=== PATIENT | female | born 1950 | race Caucasian/White ===

== ENCOUNTER 2021-05-25 11:46 | Outpatient (REF) | payer MEDICARE, SELFPAY ==
--- NOTE | ~2021-05-25 | MM_ITS ---
EXAMINATION: MM SCREENING DIGITAL BREAST TOMOSYNTHESIS, BILATERAL CLINICAL INFORMATION: Screening. Asymptomatic. The lifetime risk of breast cancer based on the Tyrer-Cuzick Model is 3%. COMPARISON: Mammography: 12/26/2018, 12/10/2017, 04/25/2016 TECHNIQUE: Digital breast tomosynthesis is performed in both the craniocaudal and mediolateral oblique views along with computer-aided detection (CAD). Synthesized 2D images are generated from the tomosynthesis. FINDINGS: The breasts are heterogeneously dense, which may obscure small masses (ACR BI-RADS breast composition Category c). There are no significant masses, abnormal calcifications, or other abnormalities. There is fine fibronodular parenchymal pattern similar to prior studies. Parenchymal pattern is similar to prior exams. The axilla and skin contours are unremarkable. MM/MM tomosynthesis screening BI IMPRESSION: No mammographic evidence of malignancy. ASSESSMENT: BI-RADS 1: Negative RECOMMENDATION: Routine annual mammography screening. This patient's information was entered into a reminder system with a target due date for their next mammogram.
== END 2021-05-25 11:47 | disposition home or self-care (01) ==
LOC: HO.MAMMO 11:46
PROVIDERS: Visit Provider Internal Medicine
DX: Z12.31 Encounter for screening mammogram for malignant neoplasm of breast (principal)
CPT/HCPCS: 77063; 77067

== ENCOUNTER → 2022-09-06 13:45 | Outpatient (BNV) | payer OTHER, SELFPAY | PROVIDERS: PCP Internal Medicine; Visit Provider Radiology Diagnostic Radiology | DX: Z12.31 Encounter for screening mammogram for malignant neoplasm of breast (principal) | CPT/HCPCS: 77063; 77067 ==

== ENCOUNTER 2022-09-06 13:47 | Outpatient (REF) | payer OTHER, SELFPAY ==
--- NOTE | ~2022-09-06 | MM_ITS ---
EXAMINATION: MM SCREENING DIGITAL BREAST TOMOSYNTHESIS, BILATERAL CLINICAL INFORMATION: Screening. Asymptomatic. The lifetime risk of breast cancer based on the Tyrer-Cuzick Model is 2.5%. COMPARISON: Mammography: This study is compared with prior exams dating back to 2017. TECHNIQUE: Digital breast tomosynthesis is performed in both the craniocaudal and mediolateral oblique views along with computer-aided detection (CAD). Synthesized 2D images are generated from the tomosynthesis. FINDINGS: The breasts are heterogeneously dense, which may obscure small masses (ACR BI-RADS breast composition Category c). There are no significant masses, abnormal calcifications, or other abnormalities. MM/MM tomosynthesis screening BI IMPRESSION: No mammographic evidence of malignancy. ASSESSMENT: BI-RADS BI-RADS 1 - Negative RECOMMENDATION: Routine annual mammography screening. 1 year F/U This examination should not preclude the clinical evaluation of a suspicious palpable abnormality. This patient's information was entered into a reminder system with a target due date for their next mammogram.
== END 2022-09-06 13:48 | disposition home or self-care (01) ==
LOC: HO.MAMMO 13:47
PROVIDERS: PCP Internal Medicine; Visit Provider Internal Medicine
DX: Z12.31 Encounter for screening mammogram for malignant neoplasm of breast (principal)
CPT/HCPCS: 77063; 77067

== ENCOUNTER 2023-09-13 09:35 | Outpatient (REF) | payer OTHER, SELFPAY ==
[2023-09-13 11:24] LABS: MANUAL DIFF FLAG NO
[2023-09-13 11:28] LABS: Basophils Absolute Auto 0.1 X10*3/uL (0.0-0.2); Basophils Percent Auto 0.7 % (0-2); Eosinophils Absolute Auto 0.2 X10*3/uL (0.0-0.4); Eosinophils Percent Auto 2.4 % (0-4); Hematocrit 37.3 % (37.0-47.0); Hemoglobin 12.3 g/dl (12.0-16.0); Imm Gran Abs Auto 0.02 X10*3/uL (0.00-0.03); Imm Gran Pct Auto 0.3 % (0.0-0.4); Lymphocytes Absolute Auto 2.3 X10*3/uL (1.2-4.9); Lymphocytes Percent Auto 29.7 % (20-40); Mean Corpuscular Hemoglobin 30.6 pg (27.0-33.0); Mean Corpuscular Volume 92.8 fL (80.0-98.0); Mean Platelet Volume 10.6 fL (9.4-12.3); Monocytes Absolute Auto 0.4 X10*3/uL (0.1-1.2); Monocytes Percent Auto 5.1 % (2-11); Neutrophils Absolute Auto 4.7 x10*3/uL (2.0-8.3); Neutrophils Percent Auto 61.8 % (45-73); Platelet Count 226 X10*3/uL (160-400); Red Blood Count 4.02 X10*6/uL (4.20-5.50); Red Cell Distribution Width 12.6 % (11.0-16.0); White Blood Count 7.6 X10*3/uL (4.8-10.8)
[2023-09-13 11:35] LABS: Estimated Average Glucose 131 mg/dL; Hemoglobin A1c % 6.2 % (<6.0)
[2023-09-13 11:46] LABS: Alanine Aminotransferase 8 U/L (0-31); Alkaline Phosphatase 83 U/L (39-117); Anion Gap 16 (12-20); Aspartate Amino Transferase 20 U/L (5-31); Bilirubin Total 0.3 mg/dL (0.0-1.0); Blood Urea Nitrogen 18 mg/dL (9-16); Calcium 9.7 mg/dL (8.4-10.2); Carbon Dioxide 23 mmol/L (22-29); Chloride 104 mmol/L (96-108); Cholesterol 197 mg/dL (<200); Estimated Glomerular Filt Rate 56; Glucose Random 100 mg/dL (60-115); HDL Cholesterol 57 mg/dL (>40); LDL Cholesterol Calculated 125 mg/dL (<100); Potassium 3.9 mmol/L (3.3-5.1); Sodium 139 mmol/L (135-145); Total Protein 9.4 g/dL (6.5-8.0); Triglycerides 78 mg/dL (<150)
[2023-09-13 11:52] LABS: Reflex LDLD? No
[2023-09-13 11:58] LABS: HIV AB/AG Nonreactive (Nonreactive); HIV Num 1 0.05 S/CO (0.00-0.99)
[2023-09-13 12:05] LABS: Vitamin D 25-OH Total 7.8 ng/mL (>30)
[2023-09-17 11:24] LABS: HCV Log PCR <1.18 NOT DETECTED Log IU/mL (NOT DETECTED); HepC Viral Load <15 NOT DETECTED IU/mL (NOT DETECTED)
== END 2023-09-13 09:36 | disposition home or self-care (01) ==
LOC: HO.HHCL 09:35
PROVIDERS: Visit Provider Internal Medicine
DX: Z00.00 Encounter for general adult medical examination without abnormal findings (principal); Z13.1 Encounter for screening for diabetes mellitus
CPT/HCPCS: 36415; 80053; 80061; 82306; 83036; 85025; 87389; 87522

== ENCOUNTER 2023-10-04 09:13 | Outpatient (REF) | payer OTHER, SELFPAY ==
--- NOTE | ~2023-10-04 | MM_ITS ---
EXAMINATION: MM SCREENING DIGITAL BREAST TOMOSYNTHESIS, BILATERAL CLINICAL INFORMATION: Screening. Asymptomatic. COMPARISON: Mammography: This study is compared with prior exams dating back to 2019. TECHNIQUE: Digital breast tomosynthesis is performed in both the craniocaudal and mediolateral oblique views along with computer-aided detection (CAD). Synthesized 2D images are generated from the tomosynthesis. FINDINGS: The breasts are heterogeneously dense, which may obscure small masses (ACR BI-RADS breast composition Category c). There is a focal asymmetry of the lower inner quadrant of the left breast at middle depth. Additional mammographic and targeted sonographic imaging of this finding is advised. In the right breast, there are no significant masses, abnormal calcifications, or other abnormalities. MM/MM tomosynthesis screening BI IMPRESSION: Focal asymmetry of the left breast warrants additional mammographic and targeted sonographic imaging. No mammographic signs of malignancy right breast. ASSESSMENT: BI-RADS BI-RADS 0 - Incomplete: Needs additional Imaging. RECOMMENDATION: 1. Additional views of the left breast. 2. Targeted ultrasound if warranted after review of the additional views. 3. Radiology department staff will contact the patient for additional imaging. Additional Imaging required This examination should not preclude the clinical evaluation of a suspicious palpable abnormality. This patient's information was entered into a reminder system with a target due date for their next mammogram. Electronically signed by: Lisbeth Nuno MD 11/01/2023 11:30 AM EDT
--- NOTE | ~2023-10-04 | MM_ITS ---
EXAMINATION: BONE DENSITOMETRY CLINICAL INDICATION: Encounter for screening for osteoporosis. COMPARISON: Baseline BD dated 11/25/2009. TECHNIQUE: Using a [employer] DXA System (software version: 13.1) manufactured by [employer], dual-energy x-ray absorptiometry was performed of the lumbar spine and left hip. The images are of good technical quality. Summary results are attached. FINDINGS: LEFT FEMUR, NECK: Current: BMD 0.863 g/cm2, Z-score 0.6, T-score -1.3, osteopenia. Baseline: BMD 1.002 g/cm2. LEFT FEMUR, TOTAL: Current: BMD 0.929 g/cm2, Z-score 1.0, T-score -0.6, normal, 13.9% decrease from baseline (<5% change is not significant). Baseline: BMD 1.079 g/cm2. AP SPINE L1-L4: Current: BMD 0.965 g/cm2, Z-score 0.0, T-score -1.8, osteopenia, 17.8% decrease from baseline (<5% change is not significant). Baseline: BMD 1.174 g/cm2. IDENTIFIED RISK FACTORS: Early menopause, secondary osteoporosis. HISTORY OF FRACTURE: None listed. MEDICATIONS: None listed. MM/XR DEXA axial skeleton IMPRESSION: 1. DIAGNOSIS: Osteopenia based on the lowest T-score value of -1.8 in the lumbar spine applying World Health Organization criteria. 2. 10-YEAR FRACTURE RISK PREDICTION, FRAX: Major osteoporotic fracture (clinical spine, forearm, hip or shoulder) 5.5%. Hip fracture 0.8%. 3. Treatment Recommendations: NOF guidelines recommend consideration for treatment in postmenopausal women and men age 50 and older presenting with the following: -A hip or vertebral (clinical or morphometric) fracture. -T-score less than or equal to -2.5 at the femoral neck or spine after appropriate evaluation to exclude secondary causes. -Low bone mass at the hip or spine and a 10-year fracture probability by FRAX of greater than or equal to 3% for hip fracture or greater than or equal to 20% for major osteoporotic fracture based on the [place] adapted WHO algorithm. 4. Other Recommendations: All treatment decisions require clinical judgment and consideration of individual patient factors, including patient preferences, comorbidities, previous drug use, risk factors not captured in the FRAX model (e.g. frailty, falls, vitamin D deficiency, increased bone turnover, interval significant decline in bone density) and possible under or overestimation of fracture risk by FRAX. Additional medical evaluation for secondary cause of low bone mineral density may be appropriate. FUTURE SCAN RECOMMENDATION: People with diagnosed cases of osteoporosis or at high risk for fracture should have regular bone mineral density tests. For patients eligible for Medicare, routine testing is allowed once every 2 years. The testing frequency can be increased to one year for patients who have rapidly progressing disease, those who are receiving or discontinuing medical therapy to restore bone mass, or have additional risk factors.
== END 2023-10-04 09:14 | disposition home or self-care (01) ==
LOC: HO.MAMMO 09:13
PROVIDERS: PCP Internal Medicine; Visit Provider Internal Medicine
DX: Z12.31 Encounter for screening mammogram for malignant neoplasm of breast (principal); Z13.820 Encounter for screening for osteoporosis; Z78.0 Asymptomatic menopausal state
CPT/HCPCS: 77063; 77067; 77080

== ENCOUNTER → 2023-10-04 09:45 | Outpatient (BNV) | payer OTHER, SELFPAY | PROVIDERS: PCP Internal Medicine; Visit Provider Radiology Diagnostic Radiology | DX: Z12.31 Encounter for screening mammogram for malignant neoplasm of breast (principal) | CPT/HCPCS: 77063; 77067 ==

== ENCOUNTER 2024-03-13 10:28 | Outpatient (AMB) | payer OTHER, SELFPAY ==
--- NOTE | 2024-03-13 10:36 | MHC.OFFVIS ---
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 States she had a vein procedure over [address] [place]. She states her left leg cramps. 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 Complaints include pain over varicosities, swelling of lower extremities, cramping, fatigue, and heaviness of the lower extremities. It has been affecting there daily activities including walking. It is noted more so in left leg. Patient unclear if this was an ablation but procedure done on right leg in [facility] Patient denies any history of DVT/ PE. Patient denies any history of phlebitis. Trial of compression includes - [id number] They now present for vascular evaluation regarding their varicose veins. Review of Systems Const Reports as per HPI ENT Reports no additional complaints Card Denies chest pain, Denies chest pain at rest and Denies chest pain with activity Resp Denies chest congestion and Denies cough GI Reports no additional complaints Musc Details: pain over varicosities, aching of lower extremities, swelling, cramping, heaviness and tiredness, itching Denies abnormal gait Skin/Breast Reports pruritus and Denies wounds Neuro Reports no additional complaints and Denies abnormal gait Psych Denies no additional complaints Physical Exam Const General: cooperative, healthy appearing and comfortable Orientation/consciousness: oriented to person, oriented to place and oriented to time Neck Carotids: no bruits Chest Chest palpation & inspection: normal inspection of the chest and normal palpation of entire chest wall Resp Effort & Inspection: normal respiratory effort and able to speak in complete sentences Cardio Rate: regular rate Heart sounds: S1 normal heart sound present and S2 normal heart sound present Peripheral pulses: Peripheral pulses 2+ throughout GI Inspection: Yes normal to inspection Skin Other: +2 edema, large rope-like varicosities greater than 4 mm CEAP Classification C4 - skin color changes Ep - Etiology Primary As - superficial veins P - reflux General skin exam: dry skin Neuro General: oriented to person, oriented to place and oriented to time Extrem Right lower extremity: full ROM, normal capillary refill and edema Left lower extremity: full ROM, normal capillary refill and edema Psych Mental Status: mental status grossly normal Assessment & Plan Assessment & Plan (1) Varicose veins of left lower extremity with inflammation: Code(s): I83.12 - Varicose veins of left lower extremity with inflammation Category: Medical Plan: In short, the patient has evidence of venous insufficiency. I have discussed the pathophysiology with the patient. In addition I have provided informational material regarding venous disease to the patient. We have discussed conservative measures including compression, elevation, and exercise. I have also provided a handout regarding appropriate use of compression stockings and where to purchase good compression stockings as well. I have taken the liberty of ordering venous insufficiency testing with the patient. They will follow up with me after testing. The patient had an opportunity to ask questions regarding the treatment plan. All questions were answered. Imaging studies, laboratory studies and physical exam results were discussed and reviewed in detail. No major barriers to understanding were identified. The patient expressed understanding and agreement with the above treatment plan. The patient is aware they should contact our office by phone for worsening of the current condition or the appearance of new symptoms. Thank you for allowing me to participate in the vascular care of this patient. If you have any questions or concerns regarding the treatment for the above condition please do not hesitate to contact me. The office telephone contact is [phone]. This note is constructed using voice recognition software. While every effort has been made to ensure accuracy, wire rope sling maker errors may have been included. Thank you for allowing me to participate in the care of your patient. Yours sincerely, Andrey Graff MD, FACS, R.P.V.I. Orders: Orders US venous duplex LE BI 1 Week I83.12 - Varicose veins of left lower extremity with inflammation Coding Level of Care Code New Pt Level 4 (86214) Diagnoses Varicose veins of left lower extremity with inflammation I83.12
== END 2024-03-13 11:10 | disposition home or self-care (01) ==
PROVIDERS: PCP Internal Medicine; Visit Provider Surgery Vascular Surgery
DX: I83.12 Varicose veins of left lower extremity with inflammation (principal)
CPT/HCPCS: 99204

== ENCOUNTER → 2024-03-13 10:28 | Outpatient (BNVA) | payer OTHER, SELFPAY | PROVIDERS: PCP Internal Medicine; Visit Provider Surgery Vascular Surgery | DX: I83.12 Varicose veins of left lower extremity with inflammation (principal); I83.812 Varicose veins of left lower extremity with pain | CPT/HCPCS: 99202 ==

== ENCOUNTER 2024-06-12 12:54 | Outpatient (REF) | payer OTHER, SELFPAY ==
--- NOTE | ~2024-06-12 | US_ITS ---
EXAMINATION: MM DIAGNOSTIC DIGITAL BREAST TOMOSYNTHESIS, LEFT Limited left breast ultrasound. CLINICAL INFORMATION: Call back from screening for focal asymmetry in the lower inner left breast. COMPARISON: Mammography: [facility] on PACS. TECHNIQUE: Digital breast tomosynthesis is performed in both the craniocaudal and mediolateral oblique views along with computer-aided detection (CAD). Synthesized 2D images are generated from the tomosynthesis. FINDINGS: The breasts are heterogeneously dense, which may obscure small masses (ACR BI-RADS breast composition Category c). Focal asymmetry in the lower inner breast partially effaces on additional imaging projections. No suspicious calcifications or other abnormal findings. Targeted color Doppler ultrasound scanning in the lower inner breast from 7-11 o'clock demonstrates normal fibronodular breast tissue. There is no sonographic abnormality. US/US breast LT limited mamm only IMPRESSION: Focal asymmetry in the lower inner breast partially effaces without sonographic correlate. Recommend 4-6 month follow-up for further evaluation of stability when the patient will be due for bilateral mammography. ASSESSMENT: BI-RADS BI-RADS 3 - Probably benign finding(s) - 6 month follow-up suggested RECOMMENDATION: 6 Month F/U Results were provided to the patient at time of visit by the technologist. This patient's information was entered into a reminder system with a target due date for their next mammogram. Electronically signed by: Luanne Gray DO 06/12/2024 02:33 PM EDT
--- OUTSIDE RECORDS SUMMARY | 2024-06-12 15:47 | XMS_ITS | Clinical Summary ---
Author Organization [facility] Address [address] [place] [address] Care Team Providers Care Technical Lead Name Role Phone Unavailable Primary Care Provider Unavailabl e Source Comments PLEASE NOTE, if this patient is a minor, it may be UNLAWFUL to discuss sensitive information that is contained in these records (such as FAMILY PLANNING, MENTAL HEALTH or SUBSTANCE ABUSE) with the minor patient's parent or other person without the patient's specific authorization.[facility] Immunizations Immunization Administration Dates Next Due Moderna COVID-19 Vaccine, re d cap blue label, 12+ Primary Series 07/07/2020,06/09/2020 Social History Tobacco Use Types Packs/Day Years Used Date Smoking Tobacco: Never Assessed Social Connections Answer Date Recorded Social Connections and Isolation 0 07/27/2023 Financial Resource Strain Answer Date R ecorded Financial Resource Strain 0 2023 Stress Answer Date Recorded Stress 0 07/27/2023 Physical Activity Answer Date Recorded Physical Activity 0 07/27/2023 Food Insecurity Answer Date Recorded Food 0 07/27/2023 Transportation Needs Answer Date Record ed Transportation 0 07/27/2023 Housing Stability Answer Date Recorded Housing 0 07/27/2023 Safety and Environment Answer Date Jose rded Safety 0 07/27/2023 Utilities Answer Date Recorded Utilities 0 07/27/2023 Employment Answer Date Recorded Employment 0 07/27/2023 Comments Unknown Sex and Gender Information Value Date Recorded Sex Assigned at Not on file Legal Sex Female 1:15 PM PDT Gender Identity Not on file Sexual Orientation Not on file Plan of Treatment Health Maintenance Due Date Last Done Comments Hepatitis C Screening 1950 Lipid Screening 1950 Tobacco Screening 1950 Hypertension Screening (#1) 05/09/1969 Medicare Annual Wellness Visit 05/09/1969 Breast Cancer Screening (Mammogram) 1991 CT Colonography 05/09/1996 Colonoscopy 05/09/1996 Colorectal Cancer Screening 05/09/1996 FIT/gFOBT 05/09/1996 Fecal DNA 05/09/1996 Flexible Sigmoidoscopy 05/09/1996 Imm-Pneumococcal 65+ (2 of 2 - PCV) 05/29/2006 05/29/2005 Imm-Zoster, Recombinant (2 of 3) 03/17/2015 01/21/20 15 Bone Density Screening 05/09/2016 Falls Prevention 05/09/2016 [id number] ( season) 2023 021, 06/09/2020 Imm-Influenza (#1) 2023 01/14/2019, 1 , 04/18/2016, Additional history exists Alcohol and Drug Screen 02/27/2024 Depression Annual Screen 02/27/2024 Imm-DTaP/Tdap/Td (2 - Td or Tdap) 09/13/2025 016, 08/07/2005 Insurance [facility] Member Subscriber Plan / Payer (Ef fective 2020-Present) Name:Liz Luther Relation to Subscriber:Self Name:Liz Luther Payer ID:[id number] Type:Indemnity Address: [facility] [address] [id number]
== END 2024-06-12 12:55 | disposition home or self-care (01) ==
LOC: HO.MAMMO 12:54
PROVIDERS: PCP Internal Medicine; Visit Provider Internal Medicine
DX: N64.89 Other specified disorders of breast (principal)
CPT/HCPCS: 76642; 77061; 77065

== ENCOUNTER → 2024-06-12 13:00 | Outpatient (BNV) | payer OTHER, SELFPAY | PROVIDERS: PCP Internal Medicine; Visit Provider Internal Medicine | DX: R92.8 Other abnormal and inconclusive findings on diagnostic imaging of breast (principal) | CPT/HCPCS: 76642; 77065; G0279 ==

== ENCOUNTER 2024-11-27 11:18 | Outpatient (REF) | payer OTHER, SELFPAY ==
--- NOTE | ~2024-11-27 | MM_ITS ---
EXAMINATION: MM DIAGNOSTIC DIGITAL BREAST TOMOSYNTHESIS, BILATERAL CLINICAL INFORMATION: 6 month follow-up for left breast focal asymmetry lower inner breast without prior sonographic correlate. COMPARISON: Mammography: Comparison is made with relevant prior exams. TECHNIQUE: Digital breast mammography with tomosynthesis is performed in both the craniocaudal and mediolateral oblique views along with computer-aided detection (CAD). FINDINGS: The breasts are heterogeneously dense, which may obscure small masses. Left: Focal asymmetry in the lower inner left breast middle depth without prior sonographic correlate. Because compared with priors. No suspicious calcifications or other abnormal findings. Right: There are no significant masses, abnormal calcifications, or other abnormalities. Results are provided to the patient at time of visit by the technologist. MM/MM tomosynthesis diagnostic BI IMPRESSION: Left: Focal asymmetry lower inner breast less conspicuous compared with priors and without prior sonographic correlate. Recommend six-month follow-up to demonstrate 1 year stability. Right: Negative. ASSESSMENT: BI-RADS Category 3: Probably benign RECOMMENDATION: 6 Month F/U This patient's information was entered into a reminder system with a target due date for their next mammogram. Electronically signed by: Luanne Gray DO 11/27/2024 12:12 PM EDT
--- OUTSIDE RECORDS SUMMARY | 2024-11-27 13:13 | XMS_ITS | Patient Health Record ---
Demographics Address [address] [place] [address] Preferred Language Unknown Marital Status unmarried Shinto Affiliation Unknown Race Unknown Ethnic Group Unknown Author Organization [facility] Address [address] [place] [address] Care Team Providers Care Industrial Equipment Wirer Name Role Phone Mart Moraes Jr [phone] Reason For Referral No Information Plan Of Treatment No Information
--- OUTSIDE RECORDS SUMMARY | 2024-11-27 13:13 | XMS_ITS | Clinical Summary ---
Author Organization [employer] Address [address] [facility] 7[address] [place] [address] Care Team Providers Care Moving Consultant Name Role Phone Liz Guadalupe MD Primary Care Provide r Allergies No known active allergies Medications Blood Pressure Monitoring (Blood Pressure Cuff) miscIndications: Elevated blood pressure reading 1 each Once daily. 1 each 09/10/19 24 Active metFORMIN (Glucophage) 500 MG tabletIndication s:Prediabetes Take 1 tablet (500 mg) by mouth with breakfast and with evening meal. 60 tablet 11 10/09/19 24 Active cholecalciferol (Vitamin D-3) 25 MCG (1000 UT) tabletIndication s:Vitamin D deficiency Take 1 tablet (25 mcg) by mouth Once per day. 60 tablet 3 04/22/19 25 Active levothyroxine (Synthroid, Levoxyl) 25 MCG tabletIndication s:Hypothyroidism , unspecified type TAKE 1 TABLET BY MOUTH EVERY DAY 90 tablet 3 09/16/19 25 Active tolterodine (Detrol) 2 MG tabletIndication s:Mixed stress and urge urinary incontinence Take 1 tablet (2 mg) by mouth 2 times daily. 60 tablet 11 09/16/19 25 026 Active ergocalciferol (Vitamin D2) 1.25 MG (94907 UT) capsuleIndicatio ns:Vitamin D deficiency TAKE 1 CAPSULE BY MOUTH ONCE A WEEK 4 capsule 5 11/14/19 25 Active ergocalciferol (Vitamin D2) 1.25 MG (84105 UT) capsuleIndicatio ns:Vitamin D deficiency Take 1 capsule (1.25 mg) by mouth 1 (one) time per week. 4 capsule 5 10/09/19 24 025 Discontinued Active Problems Problem Noted Date Diagnosed Date Diminished vision 09/15/2024 Depression with anxiety 09/15/2024 Assessment & Plan (09/15/2024 4:07 PM EDT): Counseling done BHN referral done Hearing decreased 09/15/2024 Cognitive impairment 05/01/2024 Acquired hypothyroidism 04/22/2024 Assessment & Plan (04/22/2024 5:11 PM EST): TSH will be checked Continue with levothyroxine 25 mcg daily Prediabetes 10/09/2023 Assessment & Plan (09/15/2024 4:06 PM EDT): Today extensive discussion was done about life style modifications I advise healthy diet (low calorie) and cardiovascular exercise Assessment & Plan (04/22/2024 5:11 PM EST): Extensive counseling about healthy diet and exercise done today Assessment & Plan (10/09/2023 2:57 PM EDT): Today extensive discussion was done about life style modifications I advise healthy diet (low calorie) and cardiovascular exercise Osteopenia 10/09/2023 Assessment & Plan (10/09/2023 2:57 PM EDT): Vitamin D higher dose prescribed today Vitamin D deficiency 10/09/2023 Asymptomatic menopausal state 09/10/2023 Encounter for preventive care 09/10/2023 Assessment & Plan (09/10/2023 5:32 PM EDT): See HPI Unstable gait 09/10/2023 Assessment & Plan (04/22/2024 5:12 PM EST): tripod cane prescribed today Assessment & Plan (09/10/2023 5:33 PM EDT): Cane will be prescribed today Colon cancer screening 09/10/2023 Elevated blood pressure reading 09/10/2023 Impacted cerumen 05/03/2022 Grief 05/03/2022 Tension-type headache 05/03/2022 Bilateral hearing loss 09/14/2015 Eczema 09/14/2015 Gastroesophageal reflux disease 09/14/2015 Mood disorder 09/14/2015 Osteoarthritis of multiple joints 09/14/2015 Postoperative hypothyroidism 09/14/2015 Urinary incontinence 09/14/2015 Assessment & Plan (09/15/2024 4:07 PM EDT): Information for urology referral provided today Assessment & Plan (04/22/2024 5:11 PM EST): I will refer patient to neurology for further assessment and management Varicose veins of lower extremity 09/14/2015 Encounters Date Type Department Care Team Description 11/27/2024 Orders Only [facility] MEDICINE [address] [place] [phone] Liz Guadalupe MD 11/13/[address] [address] Liz Guadalupe MD Vitamin D deficiency 09/15/2024 1:30 PM EDT Office Visit [address] [address] Liz Guadalupe MD Grief (Primary Dx); Cognitive impairment; Hypothyroidism, unspecified type; Mixed stress and urge urinary incontinence; Prediabetes; Diminished vision; Primary osteoarthritis involving multiple joints; Depression with anxiety; Colon cancer screening; Decreased hearing, unspecified laterality 09/15/2024 Travel 09/12/[address] [address] Liz Guadalupe MD Chartprep from Last 3 Months Immunizations Immunization Administration Dates Next Due Influenza injectable quadriv alent IIV4 with preservative 11/30/2017,12/15/2014 Influenza injectable quadrivalent preservative f ree 04/18/2016,01/07/2014 Influenza, High Dose Seasonal, Preservative Free 01/14/2019 Influenza, IIV3, injectable 01/10/2011 Influenza, Split (incl. purified surface antigen ) 12/25/2011 Moderna Covid-19 Vaccine 12+ 06/09/2020 Pneumococcal Polysaccharide PPSV23 05/29/2005 TD (adult), 2 Lf tetanus tox oid, preservative free, adsorbed 08/07/2005 Tdap 09/14/2015 Zoster, live 01/20/2015 Social History Tobacco Use Types Packs/Day Years Used Date Smoking Tobacco: Never Passive Smoke Exposure: Never Smokeless Tobacco: Never Tobacco Cessation:Counseling Given: Not Answered Alcohol Use Standard Drinks/Week Comments Never 0 (1 standard drink = 0.6 oz pur e alcohol) Depression Answer Date Recorded Patient Health Questionnaire-9 Score 0 09/15/2024 Patient Health Questionnaire-9 Score 0 09/15/2024 Last PHQ-9: Questionnaire Data Not on file 0 09/15/2024 Housing Stability Answer Date Recorded What is your housing situation today? I have omid camacho 09/15/[address] you li ve. Do you have problems with any of the following? None of the above 09/15/2024 Food Insecurity Answer Date Recorded Within the past 12 months, y ou worried that your food would run out before you got money to buy more: Never True 09/15/2024 Within the past 12 months,th e food you bought just didn't last and you didn't have enough money to get more: Never True Transportation Answer Date Recorded In the past 12 months, has l ack of transportation kept you from medical appts, meetings, work or from getting things needed for daily living? No 09/15/2024 Utilities Answer Date Recorded In the past 12 months, has t he electric, gas, oil or water company threatened to shut off services in your home? No 09/15/2024 Depression Answer Date Recorded Patient Health Questionnaire-2 Score 0 09/15/2024 Internet Access Answer Date Recorded Internet Access Q1 No 09/15/2024 Internet Access Q2 I do not want or need it 08/27 Comments No Sex and Gender Information Value Date Recorded Sex Assigned at Female 12/26/2021 10:15 AM EDT Legal Sex Female 10:15 AM EDT Gender Identity Female 12/26/2021 10:15 AM EDT Sexual Orientation Choose not to disclose 2021 10:15 AM EDT Last Filed Vital Signs Vital Sign Reading Time Taken Comments Blood Pressure 139/78 09/15/2024 1:33 PM EDT Pulse 87 09/15/2024 1:33 PM EDT Temperature 37 C (98.6 F) 09/15/2024 1:33 PM EDT Respiratory Rate 16 09/15/2024 1:33 PM EDT Oxygen Saturation 99% 09/15/2024 1:33 PM EDT Inhaled Oxygen Concentration - - Weight 63.5 kg (140 lb) 09/15/2024 1:33 PM EDT Height 143.5 cm (4' 8.5 ) 09/15/2024 1:33 PM EDT Body Mass Index 30.83 09/15/2024 1:33 PM EDT Plan of Treatment Upcoming Encounters Date Type Department Care Team (Late st Contact Info) Description 01/05/2025 9:00 AM EST Office Visit [facility] OPTOMETRY [address] [place], [place] [id number] Luz Faust, OD [address] [place] [address] Health Maintenance Due Date Last Done Comments CT Colonography 1950 Colonoscopy 1950 Colorectal Cancer Screening 1950 FIT DNA/Cologuard 1950 FIT 1950 FOBT 1950 Sigmoidoscopy 1950 Pneumococcal Vaccine: 50+ Years (2 of 2 - PCV) 05/29/2006 05/29/2005 Zoster Vaccines (2 of 3) 03/17/2015 01/20/2015 COVID-19 Vaccine (3 - season) 2024 07/07/2020, 06/09/2020 Influenza Vaccine (#1) 2024 9, 11/30/2017, 04/18/2016, Additional history exists Diagnostic Breast Imaging 12/12/20242024, 06/12/2024, 09/06/2022 Diabetes: Hemoglobin A1C 04/22/2025 04/22/2024, 08/26 DTaP/Tdap/Td Vaccines (2 - Td or Tdap) 09/13/2025 09/14/2015, 08/07/2005 Alcohol/Substance Use Screening 09/15/2025 09/15/2024 Depression Screening 09/15/2025 09/15/2024, 09/16/19 SDOH Screening 09/15/2025 09/15/2024 Tobacco Screening 09/15/2025 09/15/2024 RSV Patients and Patients Aged 60 years or older (1 - 1-dose 75+ series) 05/09/2026 Hepatitis C Screening Completed 09/13/2023 HIB Vaccines Aged Out No longer eligi ble based on patient's age to complete this topic HPV Vaccines Aged Out No longer eligi ble based on patient's age to complete this topic Hepatitis A Vaccines Aged Out No long er eligible based on patient's age to complete this topic Hepatitis B Vaccines Aged Out No long er eligible based on patient's age to complete this topic IPV Vaccines Aged Out No longer eligi ble based on patient's age to complete this topic Meningococcal B Vaccine Aged Out No l onger eligible based on patient's age to complete this topic Meningococcal Vaccine Aged Out No merle staci eligible based on patient's age to complete this topic RSV under 20 months Aged Out No longe r eligible based on patient's age to complete this topic Rotavirus Vaccines Aged Out No longer eligible based on patient's age to complete this topic Procedures Procedure Name Priority Date/Time Associated Diagnosis Comments BI MAMMOGRAM DIAGNOSTIC TOMOSYNTHESIS BILATERAL Routine 11/27/2024 11:30 AM EDT POCT GLYCATED HEMOGLOBIN, TOTAL Routine 04/22/2024 3:09 PM EST Prediabetes HEPATITIS C VIRAL RNA, QUANTITATIVE, REAL-TIME PCR Routine 09/13/2023 9:40 AM EDT Encounter for preventive care from Last 3 Months or Most Recently Relevant to Health Maintenance Results * BI Mammogram Diagnostic Tomosynthesis Bilateral (11/27/2024 11:30 AM EDT) Anatomical Region Laterality Modality Breast Bilateral Mammography 11/27/2024 11:3 0 AM EDT Narrative 11/27/2024 12:15 PM EDT [facility] [address] [place] [address] Mammography Report Signed Patient: Liz Luther V MR#: [id number] : 1950 Acct:[id number] Age/Sex: 74 / F ADM Date: 11/27/24 Loc: HO.MAMMO Attending Dr: Liz Rojas MD Ordering Physician: Liz Guadalupe MD Results: 3Probably Benign Date of Service: 11/27/24 Follow Up: 6 Month F/U Procedure(s): MM tomosynthesis diagnostic BI Accession Number(s): [id number] cc: Liz Guadalupe MD Reason For Exam: LT BR 6MO F/U FOR DENSITY/YEARLY EXAMINATION: MM DIAGNOSTIC DIGITAL BREAST TOMOSYNTHESIS, BILATERAL CLINICAL INFORMATION: 6 month follow-up for left breast focal asymmetry lower inner breast without prior sonographic correlate. COMPARISON: Mammography: Comparison is made with relevant prior exams. TECHNIQUE: Digital breast mammography with tomosynthesis is performed in both the craniocaudal and mediolateral oblique views along with computer-aided detection (CAD). FINDINGS: The breasts are heterogeneously dense, which may obscure small masses. Left: Focal asymmetry in the lower inner left breast middle depth without prior sonographic correlate. Because compared with priors. No suspicious calcifications or other abnormal findings. Right: There are no significant masses, abnormal calcifications, or other abnormalities. Results are provided to the patient at time of visit by the technologist. MM/MM tomosynthesis diagnostic BI IMPRESSION: Left: Focal asymmetry lower inner breast less conspicuous compared with priors and without prior sonographic correlate. Recommend six-month follow-up to demonstrate 1 year stability. Right: Negative. ASSESSMENT: BI-RADS Category 3: Probably benign RECOMMENDATION: 6 Month F/U This patient's information was entered into a reminder system with a target due date for their next mammogram. Electronically signed by: Luanne Gray DO 11/27/2024 12:12 PM EDT Dictated By: Luanne Gray DO Signed By: <Electronically signed by Luanne Gray DO in OV> 11/27/24 1212 DD/ 1130 TD/TT: 11/27/24 1155 Sample Coordinator: Procedure Note Donotuseinterpreter, Image - 11/27/2024 [facility] [address] [place], [place] [address] Mammography Report Signed Patient: Liz Luther VMR#: [id number] : 2Acct:[id number] Age/Sex: 74 / FADM Date: 11/27/24 Loc: HO.MAMMO Attending Dr: Liz Rojas MD Ordering Physician: Liz Guadalupe MDResults: 3Probably Benign Date of Service: 11/27/24Follow Up: 6 Month F/U Procedure(s): MM tomosynthesis diagnostic BI Accession Number(s): [id number] cc: Liz Guadalupe MD Reason For Exam: LT BR 6MO F/U FOR DENSITY/YEARLY EXAMINATION: MM DIAGNOSTIC DIGITAL BREAST TOMOSYNTHESIS, BILATERAL CLINICAL INFORMATION: 6 month follow-up for left breast focal asymmetry lower inner breast without prior sonographic correlate. COMPARISON: Mammography: Comparison is made with relevant prior exams. TECHNIQUE: Digital breast mammography with tomosynthesis is performed in both the craniocaudal and mediolateral oblique views along with computer-aided detection (CAD). FINDINGS: The breasts are heterogeneously dense, which may obscure small masses. Left: Focal asymmetry in the lower inner left breast middle depth without prior sonographic correlate. Because compared with priors. No suspicious calcifications or other abnormal findings. Right: There are no significant masses, abnormal calcifications, or other abnormalities. Results are provided to the patient at time of visit by the technologist. MM/MM tomosynthesis diagnostic BI IMPRESSION: Left: Focal asymmetry lower inner breast less conspicuous compared with priors and without prior sonographic correlate. Recommend six-month follow-up to demonstrate 1 year stability. Right: Negative. ASSESSMENT: BI-RADS Category 3: Probably benign RECOMMENDATION: 6 Month F/U This patient's information was entered into a reminder system with a target due date for their next mammogram. Electronically signed by: Luanne Gray DO 11/27/2024 12:12 PM EDT Dictated By: Luanne Gray DO Signed By: <Electronically signed by Luanne Gray DO in OV> 11/27/24 1212 DD/ 1130 TD/TT: 11/27/24 1155 Sample Coordinator: us Liz Rojas MD IMG BI PROCEDURES Trever adrienne Result - Final * (ABNORMAL) POCT HGB A1C (04/22/2024 3:09 PM EST) Hemoglobin A1C 6.3(A) 4.0 - 6.0 % QC Media Lot # [id number] Lot# Expiration Date Blood 04/22/2024 3:09 PM EST us Liz Rojas MD POINT OF CARE TEST EN TER/EDIT ORDERABLES Final Result * Hepatitis C Viral RNA, Quantitative, Real-Time PCR (09/13/2023 9:40 AM EDT) Hepatitis C Viral Load <15 NOT DETECTED NOT DETECTED IU/mL [facility] HCV Log PCR <1.18 NOT DETECTED NOT DETECTED Log IU/mL [facility] Comment:For additional infor mation, please refer [email or web address](This link is being provided for informational/educational purposes only.)THIS TEST WAS PERFORMED AT:[facility] [place] [id number] MCKEON MD Blood 09/13/2023 9:40 AM EDT 09/13/2023 11:15 AM EDT us Liz Rojas MD LAB BLOOD ORDERABLES Final Result [facility] [address] [place] [phone] from Last 3 Months or Most Recently Relevant to Health Maintenance Insurance [facility]TE Care Teams Moving Consultant Relationship Specialty Start Date End Date Liz Guadalupe MD [address] [place] [phone] PCP - General Family Medicine 11/07/17
--- OUTSIDE RECORDS SUMMARY | 2024-11-27 13:13 | XMS_ITS | Encounter Summary ---
Demographics Address [address] [facility] [address] [place] [address] Home Phone Work Phone Mobile Phone Preferred Language es Marital Status Single Anabaptist Affiliation Unknown Race Other Race Ethnic Group Unknown Author Organization [employer] Address [address] [place] [address] Care Team Providers Care Tie Maker Name Role Phone Liz Guadalupe MD Primary Care Provide r Encounter Details Date Type Department Care Team ([facility] st Contact Info) Description 11/27/2024 Orders Only [facility] [address] [place], [place] [phone] Liz Guadalupe MD [address] [place] [address] Social History Tobacco Use Types Packs/Day Years Used Date Smoking Tobacco: Never Passive Smoke Exposure: Never Smokeless Tobacco: Never Alcohol Use Standard Drinks/Week Comments Never 0 [...] not to disclose 2021 10:15 AM EDT documented as of this encounter Plan of Treatment Upcoming Encounters Date Type Department Care Team ([facility] st Contact Info) Description 01/05/2025 9:00 AM EST Office Visit [facility] OPTOMETRY [address] [place] [address] Luz Faust, OD [address] [place] [address] documented as of this encounter Procedures Procedure Name Priority Date/Time Associated Diagnosis Comments BI MAMMOGRAM DIAGNOSTIC TOMOSYNTHESIS BILATERAL Routine 11/27/2024 11:30 AM EDT documented in this encounter Results * BI Mammogram Diagnostic Tomosynthesis Bilateral (11/27/2024 11:30 AM EDT) Anatomical Region Laterality Modality Breast Bilateral Mammography 11/27/2024 11:3 0 AM EDT Narrative 11/27/2024 12:15 PM EDT [facility] [address] [place] [address] Mammography Report Signed Patient: Liz Luther V MR#: [id number] : 1950 Acct:[id number] Age/Sex: 74 / F ADM Date: 11/27/24 Loc: HO.MAMMO Attending Dr: Liz Rojas MD Ordering Physician: Liz Guadalupe MD Results: 3Probably Benign Date of Service: 11/27/24 Follow Up: 6 Month F/U Procedure(s): MM tomosynthesis diagnostic BI Accession Number(s): [id number] cc: Liz Guadalupe MD Reason For Exam: [...] 11/27/24 1212 DD/ 1130 TD/TT: 11/27/24 1155 Backend Developer: Procedure Note Donotuseinterpreter, Image - 11/27/2024 [facility] [address] [place], [place] [address] Mammography Report Signed Patient: AshkanLiz VMR#: [id number] : 1950cct:[id number] Age/Sex: 74 / FADM Date: 11/27/24 Loc: HO.MAMMO Attending Dr: Liz Rojas MD Ordering Physician: Liz Guadalupe MDResults: 3Probably Benign Date of Service: 11/27/24Follow Up: 6 Month F/U Procedure(s): MM tomosynthesis diagnostic BI Accession Number(s): [id number] cc: Liz Guadalupe MD Reason For Exam: [...] 11/27/24 1212 DD/ 1130 TD/TT: 11/27/24 1155 Backend Developer: us Liz Rojas MD IMG BI PROCEDURES Trever adrienne Result - Final documented in this encounter Visit Diagnoses Not on filedocumented in this encounter Additional Health Concerns Assessment Noted Time PHQ-9 Depression Total Score: 0 09/16/19 25 1:35 PM EDT documented as of this encounter Care Teams Tie Maker Relationship Specialty Start Date End Date Liz Guadalupe MD [address] [place] [address] PCP - General Family Medicine 11/07/17 documented as of this encounter
--- OUTSIDE RECORDS SUMMARY | 2024-11-27 13:13 | XMS_ITS | Clinical Summary ---
Author Organization [facility] Address [address] [place] [address] Care Team Providers Care Environmental Aide Name Role Phone Unavailable Primary Care Provider [...] Fecal DNA 05/09/1996 Flexible Sigmoidoscopy 05/09/1996 Imm-Pneumococcal 50+ (2 of 2 - PCV) 05/29/2006 05/29/2005 Imm-Zoster, Recombinant (2 of 3) 03/17/2015 01/21/20 15 Bone Density Screening 05/09/2016 Falls Prevention 05/09/2016 Alcohol and Drug Screen 02/27/2024 Depression Annual Screen 02/27/2024 [id number] (3 - season) 2024 021, 06/09/2020 Imm-Influenza (#1) 2024 01/14/2019, 1 , 04/18/2016, Additional history exists Imm-DTaP/Tdap/Td (2 - Td or Tdap) 09/13/2025 016, 08/07/2005 Insurance [facility]
== END 2024-11-27 11:19 | disposition home or self-care (01) ==
LOC: HO.MAMMO 11:18
PROVIDERS: PCP Internal Medicine; Visit Provider Internal Medicine
DX: R92.2 Inconclusive mammogram (principal)
CPT/HCPCS: 77062; 77066

== ENCOUNTER → 2024-11-27 11:30 | Outpatient (BNV) | payer OTHER, SELFPAY | PROVIDERS: PCP Internal Medicine; Visit Provider Internal Medicine | DX: R92.8 Other abnormal and inconclusive findings on diagnostic imaging of breast (principal) | CPT/HCPCS: 77066; G0279 ==